=== PATIENT | female | born 1985 | race Caucasian/White ===

== ENCOUNTER 2021-07-14 14:24 | Emergency (ER) | payer MEDICAID ==
[~2021-07-14] VITALS: Ht 165.1 cm; Wt 63.5 kg
--- NOTE | 2021-07-14 16:34 | NUR ---
Patient was seen by Dr Ritchie. Urine sent to lab
[2021-07-14] MEDS ORDERED: CEPH500C2 PO (16:51)
[2021-07-14 16:52] LABS: *BILIRUBIN,URIN NEGATIVE (NEGATIVE); *BLOOD, URINE 1+ (NEGATIVE); *CLARITY,URINE CLEAR (CLEAR); *COLOR,URINE YELLOW (YELLOW); *KETONES,URINE NEGATIVE (NEGATIVE); *UROBILINOGEN,URINE 0.2 E.U./dl (NORMAL); LEUKOCYTE ESTERASE ,URINE 1+ (NEGATIVE); NITRITE, URINE NEGATIVE (NEGATIVE); PH,URINE 6.5 (5.0-8.0); UGLUCOSE NEGATIVE (NEGATIVE)
[2021-07-14 16:59] LABS: *URINE HCG, QUAL NEG (NEGATIVE)
[2021-07-14] MEDS ORDERED: HYDR-3972 PO (17:44)
--- NOTE | 2021-07-14 19:31 | NUR ---
Patient discharged to home in stable condition. Written and verbal after care instructions given. Patient verbalizes understanding of instructions. Stressed follow up or return to ER for worsening s/s.
[2021-07-14 20:51] LABS: BACTERIA,URINE FEW /HPF (NONE SEEN); SQUAMOUS EPITHELIAL CELL,UR FEW /HPF (NONE SEEN)
== END 2021-07-14 19:37 | disposition home or self-care (01) ==
LOC: ER 14:24
DX: N10 Acute pyelonephritis (principal); Z86.718 Personal history of other venous thrombosis and embolism; Z79.01 Long term (current) use of anticoagulants
CPT/HCPCS: 76775; 84703; 87077; 87086; A4663